=== PATIENT | female | born 1970 | race Caucasian/White ===

== ENCOUNTER 2018-07-09 17:16 | Inpatient (IN) ==
--- NOTE | 2018-07-09 18:10 | Emergency Department Note ---
Disposition Clinical Impression: Dysfunctional uterine bleeding, Symptomatic anemia Disposition: Admitted As Inpatient Condition: Fair Referrals: Alejandra Adrian CNP [Primary Care Provider] - Forms: ED Satisfaction Letter General Adult HPI - General Chief complaint: ED Vaginal Bleeding Stated complaint: blood transfusion per PCP Time Seen by Provider: 07/09/18 17:55 Source: patient Mode of arrival: private vehicle Limitations: no limitations Nursing Notes Reviewed: Yes Vital Signs Reviewed: Yes - History of Present Illness HPI Narrative: Patient is a 48-year-old female with a past medical history of asthma that has experienced intermittent vaginal bleeding since April 19 of this year. Patient was initially scheduled for a uterine ablation on September 08 because that worked best for her schedule and the OBs schedule, however she was seen at her PCPs today with complaints of feeling tired and weak for the last week, and was found to have a hemoglobin of 6.8 so was sent to the emergency department for blood transfusion. Patient states that she has felt tired, weak, and like she gets short of breath with any sort of activity for the last 7 days. Patient states that she has been going through approximately 6 pads and extra strength tampons per day and is passing large clots. Patient denies any history of bleeding disorder, has never had a blood transfusion. Patient states she took 4 extra strength Tylenol earlier today because of abdominal pain. Patient also states that she contacted her FOOTWEAR FACTORY WORKER today and was told that her ablation could be moved up to his early as next . Pain Scale: 7 - Related Data Home Medications Medication Instructions Recorded Confirmed Albuterol Sulfate [Ventolin Hfa] 18 gm IH Q6H PRN 03/27/18 07/09/18 Ascorbic Acid [Vitamin C] 500 mg PO BID 03/27/18 07/09/18 Ferrous Sulfate [Iron] 325 mg PO BID 03/27/18 07/09/18 BuPROPion SR (12 HR) [Wellbutrin 150 mg PO BID 07/09/18 07/09/18 SR] Elagolix Sodium [Orilissa] 200 mg PO BID 07/09/18 07/09/18 Montelukast [Singulair] 10 mg PO HS 07/09/18 07/09/18 Simvastatin [Zocor] 40 mg PO HS 07/09/18 07/09/18 Allergies Allergy/AdvReac Type Severity Reaction Status Date / Time ibuprofen Allergy Difficulty Verified 07/09/18 17:35 Breathing nitrofurantoin Allergy Difficulty Verified 07/09/18 17:35 [From Macrobid] Breathing aspirin [ASA] AdvReac Severe sob Verified 07/09/18 17:35 Sulfa (Sulfonamide AdvReac Severe sob Verified 07/09/18 17:35 Antibiotics) Review of Systems: All systems ED: reviewed and negative except as stated. Constitutional: Denies: fever, chills ENT ED: Denies: ear pain, throat pain Cardiovascular: Denies: chest pain, palpitations Respiratory: Denies: cough, dyspnea Gastrointestinal: Denies: nausea, vomiting, diarrhea, constipation Reports: abdominal pain Genitourinary: Denies: urgency, dysuria, frequency Reports: vaginal bleeding since 04/19/18 Musculoskeletal: Denies: back pain, neck pain Integumentary: Denies: rash, abrasion Neurological: Denies: headache, numbness, paresthesias Reports: weakness Psychiatric: Denies: anxiety, depression Endocrine: Denies: fatigue, heat or cold intolerance Hematological/Lymphatic: Denies: easy bleeding, easy bruising Allergic/Immunologic: Denies: facial swelling, urticaria Past Medical History - Past Medical History Attestation: Yes The following information was validated with the patient. Medical history: Reports: asthma, hyperlipidemia Psychiatric history: Reports: depression - Social History Smoking Status: Never smoker Smokeless Tobacco Status: No Alcohol use: Reports: none, occasionally Drug use: Reports: none Physical Exam General: A&O x 3. No acute distress. Well developed, well nourished. Head: atraumatic, normocephalic. ENT: No conjunctival injection, no scleral icterus. PERRLA. EOMI. Oropharynx non- erythematous. mucous membranes moist. Pale conjunctiva. Neuro: No focal deficits, no speech deficit, no facial droop, mentating well. BUE/BLE Str 5/5. Pulm: Lungs CTAB A/P. No wheezes, rales, ronchi. Cardio: Tachycardic. No m/r/g appreciated. Chest not tender to palpation. Abd: Soft, non-distended. Normoactive bowel sounds. No guarding. Non rigid. Abd tender to palpation in suprapubic area. Extremities: Radial pulses 2+ letha, dorsalis pedis/posterior tibialis 2+ letha. No LE edema. No cyanosis, clubbing. Skin: warm, dry, intact. No rashes. Psych: Appropriate mood and affect. Answers questions appropriately. Cooperative with exam. - General Limitations: no limitations General appearance: alert, in no apparent distress Course Course Narrative: Pt had CBC earlier today which showed Hg of 6.8, will recheck and order type & screen. Will also obtain EKG for tachycardia. Will order blood once Hg results. Will admit and consult FOOTWEAR FACTORY WORKER. - Reevaluation(s) Reevaluation #1: Repeat Hg was 6.6, ordered two units. Time: 19:06 Vital Signs Temperature 98.5 F 07/09/18 17:31 Pulse Rate 100 07/09/18 17:31 Respiratory Rate 16 07/09/18 17:31 Blood Pressure 128/77 07/09/18 17:31 O2 Sat by Pulse Oximetry 100 07/09/18 17:31 Temperature 98.5 F 07/09/18 17:31 Pulse Rate 97 07/09/18 20:43 Respiratory Rate 16 07/09/18 20:43 Blood Pressure 104/48 07/09/18 20:43 O2 Sat by Pulse Oximetry 94 07/09/18 20:43 Oxygen Delivery Oxygen Delivery Room Air Medical Decision Making - MDM Narrative Medical decision making narrative: Pt had symptomatic anemia with Hg 6.6. Ordered two units of blood. Spoke with hospitalist, Dr. Montalvo, who agreed to accept the pt. Patient was given an opportunity to ask questions at bedside and all of their concerns were addressed. Patient verbalized understanding and agreement with plan of care. Pt remained stable while in the department. - Medical Records Medical records reviewed: Yes I reviewed the patient's medical records. - Lab Data Lab results reviewed: Yes I reviewed the patient's lab results. Result diagrams: 07/09/18 18:14 07/09/18 18:14 Lab Results 07/09/18 07/09/18 07/09/18 Range/Units 18:14 18:14 18:14 WBC 7.0 (4.3-11.1) K/mcL RBC 3.10 L (3.82-4.97) M/mcL Hgb 6.6 L (11.5-15.4) g/dL Hct 23.9 L (35.3-44.9) % MCV 77.1 L (83.0-100.0) fL MCH 21.3 L (28.0-33.3) pg MCHC 27.6 L (31.6-35.5) g/dL RDW 17.2 H (11.5-14.5) % Plt Count 292 (140-400) K/mcL MPV 11.4 (9.4-12.4) fL Immature Gran % 0.3 (0-4) % Seg Neutrophils % 63.0 % Lymphocytes % 25.8 % Monocytes % 6.9 % Eosinophils % 3.6 % Basophils % 0.4 % Neutrophils # 4.4 (1.6-8.9) K/mcL Lymphocytes # 1.8 (0.6-4.6) K/mcL Monocytes # 0.5 (0.0-1.3) K/mcL Eosinophils # 0.3 (0.0-0.6) K/mcL Basophils # 0.0 (0.0-0.2) K/mcL Platelet Estimate Normal (Normal) Polychromasia 1+ A (Not Present) Hypochromasia Present A (Not Present) Anisocytosis 1+ A (Not Present) Microcytosis Present A (Not Present) Sodium 139 (136-145) mEq/L Potassium 3.9 (3.5-5.1) mEq/L Chloride 106 (98-107) mEq/L Carbon Dioxide 24 (23-29) mEq/L BUN 14 (6-20) mg/dL Creatinine 0.66 (0.60-1.20) mg/dL Est GFR ( Amer) > 60 (> 60) Est GFR (Non-Af Amer) > 60 (> 60) BUN/Creatinine Ratio 21 (6-26) Glucose 118 H (70-105) mg/dL Calculated Osmolality 290 (280-300) Calcium 9.3 (8.6-10.3) mg/dL Blood Type O POSITIVE Antibody Screen NEGATIVE Crossmatch See Detail - EKG Data EKG #1 EKG attestation: Yes I reviewed and interpreted this EKG. EKG results narrative: HR 95, rhythm sinus, axis normal. OH 157, QRS 83, QTc 454. No evidence of St elevation or depression. No criteria for LVH.
[2018-07-09 18:40] LABS: Basophils % 0.4 %; Hemoglobin 6.6 g/dL (11.5-15.4); Immature Granulocytes % 0.3 % (0-4)
[2018-07-09 18:41] LABS: Eosinophils # 0.3 K/mcL (0.0-0.6); Eosinophils % 3.6 %; Hematocrit 23.9 % (35.3-44.9); Lymphocytes # 1.8 K/mcL (0.6-4.6); Lymphocytes % 25.8 %; Mean Corpuscular HGB Conc 27.6 g/dL (31.6-35.5); Mean Corpuscular Hemoglobin 21.3 pg (28.0-33.3); Mean Corpuscular Volume 77.1 fL (83.0-100.0); Mean Platelet Volume 11.4 fL (9.4-12.4); Monocytes # 0.5 K/mcL (0.0-1.3); Monocytes % 6.9 %; Neutrophils # 4.4 K/mcL (1.6-8.9); Platelet Count 292 K/mcL (140-400); Red Cell Distribution Width 17.2 % (11.5-14.5)
--- NOTE | 2018-07-09 18:44 | Emergency Department Note ---
Disposition Clinical Impression: Dysfunctional uterine bleeding, Symptomatic anemia Disposition: Admitted As Inpatient Condition: Fair Referrals: Alejandra Adrian CNP [Primary Care Provider] - Forms: ED Satisfaction Letter General Adult HPI - General Chief complaint: ED Vaginal Bleeding Stated complaint: blood transfusion per PCP Time Seen by Provider: 07/09/18 17:55 Source: patient Mode of arrival: private vehicle Limitations: no limitations - History of Present Illness Pain Scale: 7 - Related Data Home Medications Medication Instructions Recorded Confirmed Albuterol Sulfate [Ventolin Hfa] 18 gm IH Q6H PRN 03/27/18 07/09/18 Ascorbic Acid [Vitamin C] 500 mg PO BID 03/27/18 07/09/18 Ferrous Sulfate [Iron] 325 mg PO BID 03/27/18 07/09/18 BuPROPion SR (12 HR) [Wellbutrin 150 mg PO BID 07/09/18 07/09/18 SR] Elagolix Sodium [Orilissa] 200 mg PO BID 07/09/18 07/09/18 Montelukast [Singulair] 10 mg PO HS 07/09/18 07/09/18 Simvastatin [Zocor] 40 mg PO HS 07/09/18 07/09/18 Allergies Allergy/AdvReac Type Severity Reaction Status Date / Time ibuprofen Allergy Difficulty Verified 07/09/18 17:35 Breathing nitrofurantoin Allergy Difficulty Verified 07/09/18 17:35 [From Macrobid] Breathing aspirin [ASA] AdvReac Severe sob Verified 07/09/18 17:35 Sulfa (Sulfonamide AdvReac Severe sob Verified 07/09/18 17:35 Antibiotics) Past Medical History - Past Medical History Medical history: Reports: asthma, hyperlipidemia Psychiatric history: Reports: depression - Social History Smoking Status: Never smoker Smokeless Tobacco Status: No Alcohol use: Reports: none, occasionally Drug use: Reports: none Physical Exam - General Limitations: no limitations General appearance: alert, in no apparent distress Course Vital Signs Temperature 98.5 F 07/09/18 17:31 Pulse Rate 100 07/09/18 17:31 Respiratory Rate 16 07/09/18 17:31 Blood Pressure 128/77 07/09/18 17:31 O2 Sat by Pulse Oximetry 100 07/09/18 17:31 Temperature 98.5 F 07/09/18 17:31 Pulse Rate 85 07/09/18 20:57 Respiratory Rate 16 07/09/18 20:57 Blood Pressure 119/66 07/09/18 20:57 O2 Sat by Pulse Oximetry 99 07/09/18 20:57 Oxygen Delivery Oxygen Delivery Room Air Medical Decision Making - Lab Data Result diagrams: 07/09/18 18:14 07/09/18 18:14 Lab Results 07/09/18 07/09/18 07/09/18 Range/Units 18:14 18:14 18:14 WBC 7.0 (4.3-11.1) K/mcL RBC 3.10 L (3.82-4.97) M/mcL Hgb 6.6 L (11.5-15.4) g/dL Hct 23.9 L (35.3-44.9) % MCV 77.1 L (83.0-100.0) fL MCH 21.3 L (28.0-33.3) pg MCHC 27.6 L (31.6-35.5) g/dL RDW 17.2 H (11.5-14.5) % Plt Count 292 (140-400) K/mcL MPV 11.4 (9.4-12.4) fL Immature Gran % 0.3 (0-4) % Seg Neutrophils % 63.0 % Lymphocytes % 25.8 % Monocytes % 6.9 % Eosinophils % 3.6 % Basophils % 0.4 % Neutrophils # 4.4 (1.6-8.9) K/mcL Lymphocytes # 1.8 (0.6-4.6) K/mcL Monocytes # 0.5 (0.0-1.3) K/mcL Eosinophils # 0.3 (0.0-0.6) K/mcL Basophils # 0.0 (0.0-0.2) K/mcL Platelet Estimate Normal (Normal) Polychromasia 1+ A (Not Present) Hypochromasia Present A (Not Present) Anisocytosis 1+ A (Not Present) Microcytosis Present A (Not Present) Sodium 139 (136-145) mEq/L Potassium 3.9 (3.5-5.1) mEq/L Chloride 106 (98-107) mEq/L Carbon Dioxide 24 (23-29) mEq/L BUN 14 (6-20) mg/dL Creatinine 0.66 (0.60-1.20) mg/dL Est GFR ( Amer) > 60 (> 60) Est GFR (Non-Af Amer) > 60 (> 60) BUN/Creatinine Ratio 21 (6-26) Glucose 118 H (70-105) mg/dL Calculated Osmolality 290 (280-300) Calcium 9.3 (8.6-10.3) mg/dL Blood Type O POSITIVE Antibody Screen NEGATIVE Crossmatch See Detail Critical Care Time Critical Care Time: Yes Total Critical Care Time: 35 Attestation: Critical care performed: Time is exclusive of separately billable procedures. Time includes: direct patient care, patient reassessment, coordination of patient care, interpretation of data (laboratory data, radiology data, and respiratory data), review of patient's medical records, medical consultation and documentation of patient care. Procedures included in critical care time: Procedures excluded from critical care time: Attestation Statement - Attestation Attestation: I examined this patient and my medical decision-making was reviewed with the Resident Physician. I agree with the documented findings, disposition and treatment plan as described except to the extent set forth below. Patient to the ED with a chief complaint of a low hemoglobin. Patient outpatient labs that showed a hemoglobin is 6. Patient has been complaining of vaginal bleeding. She is scheduled for uterine ablation in August. 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 She denies any increased bleeding about baseline. On examination she is in no acute distress, but is noted to be pale. Abdomen is soft and nontender. Plan. Patient has already had a gynecologic workup. We will start blood transfusion. Admitted to medicine.
[2018-07-09 18:53] LABS: BUN/Creatinine Ratio 21 (6-26); Blood Urea Nitrogen 14 mg/dL (6-20); Calcium 9.3 mg/dL (8.6-10.3); Carbon Dioxide 24 mEq/L (23-29); Chloride 106 mEq/L (98-107); Glucose 118 mg/dL (70-105); Osmolality,Calculated 290 (280-300); Potassium 3.9 mEq/L (3.5-5.1); Sodium 139 mEq/L (136-145); eGFR For Non-African Americans > 60 (> 60)
[2018-07-09 18:57] LABS: Anisocytosis 1+ (Not Present); Hypochromasia Present (Not Present); Microcytosis Present (Not Present); Platelet Estimate Normal (Normal)
[2018-07-09 18:58] LABS: Polychromasia 1+ (Not Present)
[2018-07-09] MEDS ORDERED: Naloxone 0.4 MG/ML INJ IVP PRN (22:11)
[2018-07-09] MEDS ORDERED: Ondansetron 4 MG/2 ML VIAL IVP PRN (22:11)
[2018-07-09] MEDS ORDERED: Acetaminophen 325 MG TABLET PO PRN (22:11)
--- NOTE | 2018-07-09 23:11 | Internal Med History&Physical ---
Date of Encounter: 07/09/18 Time of Encounter: 20:30 Internal Medicine - H&P: HPI Chief complaint: symptomatic anemia Admitted From: Emergency Dept Plans for Post Hospital Care: Home History of present illness: Ms. Alexander is a 48 year old female who presents to the ER with significant anemia with symptoms. Symptoms include weakness, lightheadedness, dizziness, and worsening fatigue. She has suffered from dysfunctional uterine bleeding since early March. Her PCP ordered blood work today and advised her to come to the ER as she was profoundly anemic. Repeat labs in the ER revealed hemoglobin 6.6. She was quite symptomatic with this anemia. She was therefore ordered blood transfusion and admitted to hospitalist service. Upon my assessment of the patient, she confirms the above history. She states she has been bleeding vaginally since early March and has not missed a day without significant uterine bleeding. She has followed up with her rim fire priming tool setter and is due to have a uterine ablation in August. However, because of persistent symptoms, profound anemia, and worsening labs, she was sent to the ER for further treatment and evaluation. According to patient, she has not been tried on any contraceptives or hormonal treatment for her bleeding. She is due to see her rim fire priming tool setter to follow up tomorrow. We will admit her, transfuse her, and I will ask REGIONAL CONTROLLER to see her in consultation for further workup and care. Meanwhile, I reviewed her old records and note that she has not had any pelvic ultrasound imaging performed. Therefore, I will image her with a pelvic ultrasound and seek guidance from gynecology. Past Med Surg Social Fam HX - Past Medical History Attestation: Yes The following information was validated with the patient. Source: patient, old records reviewed Medical history: asthma, hyperlipidemia Additional medical history: allergies adhd,depression Psychiatric history: depression - Past Surgical History Surgical History: no surgical history - Social History Smoking Status: Never smoker Smokeless Tobacco Status: No Alcohol use: none, occasionally Drug use: none Current living situation: Home, With Family Activity Level: Independent ambulation Recent Out of Country Travel Within the Last 8 Weeks: No - Family History Mother Hx Family GI Disorders: No Hx Family Genitourinary Disorders: No Father Hx Family GI Disorders: No Hx Family Genitourinary Disorders: No Internal Medicine - H&P: Meds Albuterol Sulfate [Ventolin Hfa] 18 gm IH Q6H PRN 03/27/18 [History] Ascorbic Acid [Vitamin C] 500 mg PO BID 03/27/18 [History] Ferrous Sulfate [Iron] 325 mg PO BID 03/27/18 [History] BuPROPion SR (12 HR) [Wellbutrin SR] 150 mg PO BID 07/09/18 [History] Elagolix Sodium [Orilissa] 200 mg PO BID 07/09/18 [History] Montelukast [Singulair] 10 mg PO HS 07/09/18 [History] Simvastatin [Zocor] 40 mg PO HS 07/09/18 [History] Allergy/AdvReac Type Severity Reaction Status Date / Time ibuprofen Allergy Difficulty Verified 07/09/18 17:35 Breathing nitrofurantoin Allergy Difficulty Verified 07/09/18 17:35 [From Macrobid] Breathing aspirin [ASA] AdvReac Severe sob Verified 07/09/18 17:35 Sulfa (Sulfonamide AdvReac Severe sob Verified 07/09/18 17:35 Antibiotics) - Constitutional Constitutional: fatigue, weakness, no chills, no fever(s), no night sweats - EENT Eyes: no blurry vision, no change in vision Ears: no ear pain, no tinnitus Nose, mouth and throat: no nasal congestion, no sinus pressure, no sore throat - Cardiovascular Cardiovascular ROS IM: dyspnea on exertion, lightheadedness, no chest pain, no dyspnea, no orthopnea, no paroxysmal nocturnal dyspnea, no syncope - Respiratory Respiratory: no cough, no hemoptysis, no chest congestion, no excessive phlegm production - Gastrointestinal Gastrointestinal: no abdominal pain, no diarrhea, no heartburn, no hematemesis, no hematochezia, no melena, no nausea, no vomiting - Genitourinary Genitourinary: abnormal menses, abnormal vaginal bleeding, no dysuria, no flank pain, no hematuria Menstruation: currently menstrual - Musculoskeletal Musculoskeletal ROS IM: no arthralgias, no back pain - Integumentary Integumentary IM: no rash, no jaundice - Neurological Neurological ROS: dizziness, no confusion, no convulsions, no disequilibrium, no focal weakness, no frequent falls, no headache(s) - Psychiatric Psychiatric: no anxiety, no depression - Endocrine Endocrine IM: no cold intolerance, no heat intolerance, no polydipsia, no polyphagia, no polyuria - Allergic/Immunologic Allergic/Immunologic: no GI upset with certain foods - Constitutional Vitals: Temp Pulse Resp BP Pulse Ox 98.6 F 81 16 113/81 98 07/09/18 20:57 07/09/18 22:13 07/09/18 22:13 07/09/18 22:13 07/09/18 22:13 General appearance: Present: cooperative, A&O X 3, pleasant, no acute distress, answers questions appropriately Exam: pale complexion; fatigued - Head Head exam: Present: atraumatic, normal inspection - Eye Eye exam: Present: EOMI, PERRL. Absent: scleral icterus, conjuntiva pink (pale) Pupils: Present: normal accommodation - ENT ENT exam: Present: mucous membranes dry, normal exam, normal oropharynx - Neck Neck exam general surgery: Present: full ROM, supple, trachea midline. Absent: lymphadenopathy, tenderness, nuchal rigidity, thyromegaly - Respiratory Respiratory exam: Present: CTAB. Absent: chest wall tenderness, rales, rhonchi, wheezes - Cardiovascular Cardiovascular exam: Present: RRR, +S1, +S2. Absent: diastolic murmur, systolic murmur - GI/Abdominal GI/Abdominal exam: Present: normal bowel sounds, soft. Absent: guarding, hepatomegaly, mass, rebound, splenomegaly, tenderness - Extremities Exam Extremities exam: Present: full ROM, warm, radial pulses palpable and symmetrical. Absent: calf tenderness, normal capillary refill (3 seconds; slightly delayed), pedal edema, tenderness - Back Exam Back exam: Present: normal inspection. Absent: CVA tenderness (L), CVA tenderness (R) - Neurological Exam Neurological exam: Present: alert, CN II-XII intact, oriented X3, no focal deficits, strengths equal and symetr throughout - Psychiatric Psychiatric exam: Present: normal affect, normal mood - Skin Skin exam: Present: dry, intact, pallor, warm. Absent: rash Internal Med - H&P Results - Labs CBC & Chem 7: 07/09/18 18:14 07/09/18 18:14 Labs: Short CBC 07/09/18 Range/Units 18:14 WBC 7.0 (4.3-11.1) K/mcL Hgb 6.6 L (11.5-15.4) g/dL Hct 23.9 L (35.3-44.9) % Plt Count 292 (140-400) K/mcL Neutrophils # 4.4 (1.6-8.9) K/mcL BMP 07/09/18 18:14 Sodium 139 Potassium 3.9 Chloride 106 Carbon Dioxide 24 BUN 14 Creatinine 0.66 Glucose 118 H Calcium 9.3 - Assessment and Plan (1) Symptomatic anemia Current Visit: Yes Status: Acute Assessment and plan: 1. Will transfuse PRBC's and trend H/H. 2. Monitor on telemetry. (2) Dysfunctional uterine bleeding Current Visit: Yes Status: Chronic Assessment and plan: 1. I called and spoke with OUTREACH PROFESSIONAL office systems technology instructor and requested consult from REGIONAL CONTROLLER. 2. I will order pelvic ultrasound as she has not had any imaging of her uterus per old records. 3. Further guidance/intervention per REGIONAL CONTROLLER. (3) DVT prophylaxis Current Visit: Yes Status: Acute Assessment and plan: 1. EPCD's.
[2018-07-09] MEDS ORDERED: 0.9 % Sodium Chloride 250 ML ONE (23:40)
[2018-07-10 05:20] LABS: Basophils % 0.6 %; Eosinophils # 0.4 K/mcL (0.0-0.6); Eosinophils % 6.3 %; Hematocrit 28.2 % (35.3-44.9); Immature Granulocytes % 0.1 % (0-4); Lymphocytes # 2.3 K/mcL (0.6-4.6); Lymphocytes % 32.1 %; Mean Corpuscular HGB Conc 29.4 g/dL (31.6-35.5); Mean Corpuscular Hemoglobin 23.5 pg (28.0-33.3); Mean Corpuscular Volume 79.9 fL (83.0-100.0); Mean Platelet Volume 11.9 fL (9.4-12.4); Monocytes # 0.6 K/mcL (0.0-1.3); Monocytes % 8.1 %; Neutrophils # 3.7 K/mcL (1.6-8.9); Platelet Count 254 K/mcL (140-400); Red Blood Count 3.53 M/mcL (3.82-4.97); Red Cell Distribution Width 17.6 % (11.5-14.5); Segmented Neutrophils % 52.8 %
[2018-07-10 05:25] LABS: Hemoglobin 8.3 g/dL (11.5-15.4)
[2018-07-10 05:26] LABS: Prothrombin Time 11.3 Seconds (9.4-12.1)
[2018-07-10 05:29] LABS: Activated Partial Thrombo Time 27.4 Seconds (26.0-36.0)
[2018-07-10 05:34] LABS: Alanine Aminotransferase 8 Units/L (7-52); Albumin/Globulin Ratio 1.6 (1.1-2.2); Alkaline Phosphatase 53 Units/L (34-104); Aspartate Amino Transferase 10 Units/L (13-39); BUN/Creatinine Ratio 17 (6-26); Bilirubin,Total 0.8 mg/dL (0.3-1.0); Blood Urea Nitrogen 10 mg/dL (6-20); Calcium 8.9 mg/dL (8.6-10.3); Carbon Dioxide 23 mEq/L (23-29); Chloride 109 mEq/L (98-107); Globulin 2.5 g/dL (2.4-3.5); Glucose 99 mg/dL (70-105); Magnesium 2.3 mg/dL (1.6-2.6); Osmolality,Calculated 289 (280-300); Potassium 3.9 mEq/L (3.5-5.1); Sodium 140 mEq/L (136-145); Total Protein 6.5 g/dL (6.4-8.9); eGFR For Non-African Americans > 60 (> 60)
--- NOTE | 2018-07-10 08:32 | Event Note ---
Date of Encounter: 07/10/18 Time of Encounter: 08:30 I spoke with the patient who is here for continued vaginal bleeding. This is an issue for several months. She is otherwise healthy other than some mild asthma that is well controlled. 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 We will arrange transfer. Appreciate Dr. Vora's help and the [facility] would be happy to assist in this patient's care should the need arise.
--- NOTE | 2018-07-10 08:37 | OB/GYN Consult Note ---
Date of Encounter: 07/10/18 Time of Encounter: 08:00 History of Present Illness Consult date: 07/10/18 Reason for consult: menorrhagia History of present illness: 48yo female who presents with menorrhagia. Patient of Dr. Payne. Has been followed in the office and seen for preoperative plans for intervention. They had discussed performing hysteroscopy D&C with ablation versus an outright hysterectomy. A TVUS was performed in the office showing an 11cm uterus with a 5cm uterine fibroid. The patient was scheduled to see Dr. Payne today to discuss preoperative plans however she presented late yesterday evening with severe bleeding. HGb was found to be 6.6. The patient was transfused 2U pRBC overnight with an appropriate rise to 8.3. A TVUS was ordered but not yet performed, as the patient is scheduled to have this done at 10AM. At bedside, the patient appears well. We discussed moving the patient to our service for IV estrogen. Patient will be transferred to our service for IV estrogen with plans to transition to PO megace once no longer bleeding. Pending TVUS. A/P: 48yo female admitted for menorrhagia and ABL anemia 1. Uterine fibroid - 2uRBPC overnight: 6.6 --> 8.3 - OK to continue regular diet - OK to ambulate as tolerated - will initiate IV estrogen x24 hr or until no longer bleeding - plan to transition to PO megace in AM and DC to home - will have patient f/u in the outpatient setting for likely discussion of hysterectomy as given her US findings, an ablation may not be appropriate. MD ANA M Past Med Surg Social Fam HX - Past Medical History Medical history: asthma, hyperlipidemia Additional medical history: allergies adhd,depression Psychiatric history: ADHD, depression - Past Surgical History Surgical History: no surgical history - Social History Smoking Status: Never smoker Smokeless Tobacco Status: No Alcohol use: occasionally Drug use: none - Family History Mother Hx Family GI Disorders: No Hx Family Genitourinary Disorders: No Father Hx Family GI Disorders: No Hx Family Genitourinary Disorders: No Medications and Allergies Albuterol Sulfate [Ventolin Hfa] 18 gm IH Q6H PRN 03/27/18 [History] Ascorbic Acid [Vitamin C] 500 mg PO BID 03/27/18 [History] Ferrous Sulfate [Iron] 325 mg PO BID 03/27/18 [History] BuPROPion SR (12 HR) [Wellbutrin SR] 150 mg PO BID 07/09/18 [History] Elagolix Sodium [Orilissa] 200 mg PO BID 07/09/18 [History] Montelukast [Singulair] 10 mg PO HS 07/09/18 [History] Simvastatin [Zocor] 40 mg PO HS 07/09/18 [History] Allergy/AdvReac Type Severity Reaction Status Date / Time ibuprofen Allergy Difficulty Verified 07/09/18 17:35 Breathing nitrofurantoin Allergy Difficulty Verified 07/09/18 17:35 [From Macrobid] Breathing aspirin [ASA] AdvReac Severe sob Verified 07/09/18 17:35 Sulfa (Sulfonamide AdvReac Severe sob Verified 07/09/18 17:35 Antibiotics) Exam - Vital Signs Vital signs: Initial Vital Signs Temp Pulse Resp BP Pulse Ox 98.5 F 100 16 128/77 100 07/09/18 17:31 07/09/18 17:31 07/09/18 17:31 07/09/18 17:31 07/09/18 17:31 Results Result Diagrams: 07/10/18 04:27 07/10/18 04:27 Abnormal lab results RBC 3.53 M/mcL (3.82-4.97) L 07/10/18 04:27 Hgb 8.3 g/dL (11.5-15.4) L D 07/10/18 04:27 Hct 28.2 % (35.3-44.9) L 07/10/18 04:27 MCV 79.9 fL (83.0-100.0) L 07/10/18 04:27 MCH 23.5 pg (28.0-33.3) L 07/10/18 04:27 MCHC 29.4 g/dL (31.6-35.5) L 07/10/18 04:27 RDW 17.6 % (11.5-14.5) H 07/10/18 04:27 Polychromasia 1+ (Not Present) A 07/09/18 18:14 Hypochromasia Present (Not Present) A 07/09/18 18:14 Anisocytosis 1+ (Not Present) A 07/09/18 18:14 Microcytosis Present (Not Present) A 07/09/18 18:14 Chloride 109 mEq/L (98-107) H 07/10/18 04:27 Creatinine 0.58 mg/dL (0.60-1.20) L 07/10/18 04:27 AST 10 Units/L (13-39) L 07/10/18 04:27 All other labs normal. Consult Discharge Plan - Plan Referrals: Alejandra Adrian, BHAVYA [Primary Care Provider] -
[2018-07-10] MEDS: BuPROPion SR (12 HR) 150 MG TABLET PO SCH ×2 (09:38→20:18)
[2018-07-10] MEDS: Ascorbic Acid 500 MG TABLET PO SCH ×2 (09:38→20:17)
--- NOTE | 2018-07-10 17:27 | Electrocardiograph Report ---
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
--- NOTE | 2018-07-11 07:24 | Discharge Summary ---
Date of Encounter: 07/11/18 Time of Encounter: 07:19 - Discharge Diagnosis (1) Dysfunctional uterine bleeding Priority: Primary Status: Chronic Comments: 48yo female, admitted for heavy menstrual bleeding, severe ABL anemia 1. Hx of uterine fibroids - patient with excessive vaginal bleeding - hx of menorrhagia, following Dr. Payne- admitted with Hgb 6.6 --> 2UpRBC -->8.3 - patient was scheduled for ablation however presented to hospital prior to preoperative bleeding with symptoms consistent with ABL anemia - started on IV estrogen x 24hrs, 25mg premarin q6hr - patient with 80% less bleeding this morning, reports to be feeling better - transitioned patient to PO: medroxyprogesterone acetate 20mg BID x 7 days for acute menorrhagia - discussed with patient, the need to follow up with Dr. Payne next week for preoperative visit and scheduling for surgical intervention - all question(s) and concerns were discussed with the patient prior to discharge to home Dispo: All precaution(S) were given to patient should she continue to have vaginal bleeding that significantly increases. Rx sent to pharmacy, will also discuss the above with Dr. Payne for preparations she can make during her preoperative appt. MD ANA M - Discharge Medications Prescriptions: No Action Ferrous Sulfate [Iron] 325 mg PO BID Ascorbic Acid [Vitamin C] 500 mg PO BID Albuterol Sulfate [Ventolin Hfa] 18 gm IH Q6H PRN PRN Reason: Shortness Of Breath BuPROPion SR (12 HR) [Wellbutrin SR] 150 mg PO BID Elagolix Sodium [Orilissa] 200 mg PO BID Montelukast [Singulair] 10 mg PO HS Simvastatin [Zocor] 40 mg PO HS Home Medications: Albuterol Sulfate [Ventolin Hfa] 18 gm IH Q6H PRN 03/27/18 [History] Ascorbic Acid [Vitamin C] 500 mg PO BID 03/27/18 [History] Ferrous Sulfate [Iron] 325 mg PO BID 03/27/18 [History] BuPROPion SR (12 HR) [Wellbutrin SR] 150 mg PO BID 07/09/18 [History] Elagolix Sodium [Orilissa] 200 mg PO BID 07/09/18 [History] Montelukast [Singulair] 10 mg PO HS 07/09/18 [History] Simvastatin [Zocor] 40 mg PO HS 07/09/18 [History] Allergies/Adverse Reactions: Allergy/AdvReac Type Severity Reaction Status Date / Time ibuprofen Allergy Difficulty Verified 07/09/18 17:35 Breathing nitrofurantoin Allergy Difficulty Verified 07/09/18 17:35 [From Macrobid] Breathing aspirin [ASA] AdvReac Severe sob Verified 07/09/18 17:35 Sulfa (Sulfonamide AdvReac Severe sob Verified 07/09/18 17:35 Antibiotics) Data Procedures and tests throughout hospitalization: Laboratory Tests 07/09/18 07/09/18 07/09/18 18:14 18:14 18:14 WBC 7.0 RBC 3.10 L Hgb 6.6 L Hct 23.9 L MCV 77.1 L MCH 21.3 L MCHC 27.6 L RDW 17.2 H Plt Count 292 MPV 11.4 Immature Gran % 0.3 Seg Neutrophils % 63.0 Lymphocytes % 25.8 Monocytes % 6.9 Eosinophils % 3.6 Basophils % 0.4 Neutrophils # 4.4 Lymphocytes # 1.8 Monocytes # 0.5 Eosinophils # 0.3 Basophils # 0.0 Platelet Estimate Normal Polychromasia 1+ A Hypochromasia Present A Anisocytosis 1+ A Microcytosis Present A PT INR APTT Sodium 139 Potassium 3.9 Chloride 106 Carbon Dioxide 24 BUN 14 Creatinine 0.66 Est GFR ( Amer) > 60 Est GFR (Non-Af Amer) > 60 BUN/Creatinine Ratio 21 Glucose 118 H Calculated Osmolality 290 Calcium 9.3 Magnesium Total Bilirubin AST ALT Alkaline Phosphatase Serum Total Protein Albumin Globulin Albumin/Globulin Ratio Blood Type O POSITIVE Antibody Screen NEGATIVE Crossmatch See Detail 07/10/18 07/10/18 07/10/18 04:27 04:27 04:27 WBC 7.0 RBC 3.53 L Hgb 8.3 L D Hct 28.2 L MCV 79.9 L MCH 23.5 L MCHC 29.4 L RDW 17.6 H Plt Count 254 MPV 11.9 Immature Gran % 0.1 Seg Neutrophils % 52.8 Lymphocytes % 32.1 Monocytes % 8.1 Eosinophils % 6.3 Basophils % 0.6 Neutrophils # 3.7 Lymphocytes # 2.3 Monocytes # 0.6 Eosinophils # 0.4 Basophils # 0.0 Platelet Estimate Polychromasia Hypochromasia Anisocytosis Microcytosis PT 11.3 INR 1.0 APTT 27.4 Sodium 140 Potassium 3.9 Chloride 109 H Carbon Dioxide 23 BUN 10 Creatinine 0.58 L Est GFR ( Amer) > 60 Est GFR (Non-Af Amer) > 60 BUN/Creatinine Ratio 17 Glucose 99 Calculated Osmolality 289 Calcium 8.9 Magnesium 2.3 Total Bilirubin 0.8 AST 10 L ALT 8 Alkaline Phosphatase 53 Serum Total Protein 6.5 Albumin 4.0 Globulin 2.5 Albumin/Globulin Ratio 1.6 Blood Type Antibody Screen Crossmatch - Impressions ITS Impressions Pelvis Ultrasound 07/10/18 10:00 IMPRESSION: Uterine fibroid measuring 3.7 x 4.0 x 3.8 cm, which appears within the myometrium and abuts the endometrial cavity. Unremarkable appearing ovaries. D/ / Jose Angel Mckeon MD / Jose Angel Mckeon MD Interpreting Provider: Jose Angel Mckeon MD Date of admission: 07/10/18 12:39 Primary care physician: Alejandra Adrian CNP Consults: 07/09/18 22:11 Consult to LOAD BUILDER [CONS] Stat Consulting Provider: TELEVISION CABLE INSTALLER Paloma Reason for Consult: DUB; symptomatic anemia Time Notified: 22:18 Call Completed: Yes Discharging clinician: Ethel Vora - Patient Status Disposition: Home, Self-Care Condition: Fair Overall status at discharge: patient is progressing back to baseline - Discharge Instructions Follow Up With: Alejandra Adrian CNP [Primary Care Provider] - Hospital Course PHYSICAL INSTRUCTOR Time Attestation: Total time spent providing and/or coordinating discharge services: Exam - Constitutional Vitals: Temp Pulse Resp BP Pulse Ox 98.1 F 77 14 115/67 98 07/11/18 04:15 07/11/18 04:15 07/11/18 04:15 07/11/18 04:15 07/11/18 04:15 General appearance IM: A&O X 0 - Respiratory Respiratory exam: Present: CTAB - Cardiovascular Cardiovascular exam IM: Present: RRR - GI/Abdominal GI/Abdominal exam IM: normal bowel sounds Incision: normal, dry, intact
[2018-07-11 08:20] VITALS: BP 125/72
[2018-07-11] MEDS: Ascorbic Acid 500 MG TABLET PO SCH (08:58)
[2018-07-11] MEDS: BuPROPion SR (12 HR) 150 MG TABLET PO SCH (08:58)
== END 2018-07-11 10:35 | disposition home or self-care (01) | DRG 760 ==
LOC: 3ANU 17:16 → EMEROOARM 17:16 → SUATTDRO 22:40 → 3ANU 23:03 → 1NENUOBS 07-10 10:46
PROVIDERS: ADMIT Pediatrics; ATTEND Student in an Organized Health Care Education/Training Program